=== PATIENT | male | born 1960 ===

== ENCOUNTER → 2025-08-01 | Outpatient (CLI) | payer MEDICARE | END | disposition home or self-care (01) | LOC: Rad HDHVI 13:54 | PROVIDERS: ATTEND Internal Medicine Cardiovascular Disease | DX: I08.0 Rheumatic disorders of both mitral and aortic valves (principal); R94.31 Abnormal electrocardiogram [ECG] [EKG] | CPT/HCPCS: 93306 ==

== ENCOUNTER 2025-09-04 17:30 | Outpatient (CLI) | payer MEDICARE | END 2025-09-04 23:00 | disposition home or self-care (01) | LOC: Rad HDHVI 17:30 | PROVIDERS: ATTEND Internal Medicine Cardiovascular Disease | DX: R00.2 Palpitations (principal) | CPT/HCPCS: 93880 ==